=== PATIENT | female | born 1935 | race Caucasian/White ===

== ENCOUNTER 2018-12-18 09:11 | Outpatient (CLI) | payer MEDICARE, BC ==
--- NOTE | 2018-12-18 11:08 | RAD ---
RIGHT KNEE THREE VIEWS: INDICATIONS: Right knee pain. FINDINGS: There are mild to moderate degenerative changes with spurring from the tibial condyles and femoral co ndyles. Small fragment seen from the lateral aspect of the lateral tibial condyle, possibly represen ting old avulsion fracture. Mild spurring from the tibial spines and posterior patella. Small joint effusion cannot be excluded. No acute fracture. IMPRESSION: Mild to moderate degenerative change, as described. POS: OFF
== END 2018-12-18 09:12 | disposition home or self-care (01) ==
LOC: SCSRAD 09:11
PROVIDERS: ATTEND Family Medicine
DX: M25.561 Pain in right knee (principal); M17.11 Unilateral primary osteoarthritis, right knee

== ENCOUNTER 2019-02-16 20:53 | Emergency (ER) | payer MEDICARE, BC | END 2019-02-16 21:34 | disposition home or self-care (01) | LOC: SCSER 20:53 | DX: J01.90 Acute sinusitis, unspecified (principal); Z79.82 Long term (current) use of aspirin; Z79.899 Other long term (current) drug therapy; Z79.891 Long term (current) use of opiate analgesic | CPT/HCPCS: 99283 ==

== ENCOUNTER 2020-06-26 14:43 | Emergency (ER) | payer MEDICARE, BC ==
[2020-06-26] MEDS ORDERED: Ketorolac Tromethamine 30 MG/ML VIAL ONE (16:36)
[2020-06-26] MEDS ORDERED: Acetaminophen/Codeine 30-300mg Tablet ONE (16:48)
== END 2020-06-26 18:35 | disposition home or self-care (01) ==
LOC: ERS 14:43
DX: M79.662 Pain in left lower leg (principal)
CPT/HCPCS: 96372; J1885

== ENCOUNTER 2020-09-02 12:20 | Observation (INO) | payer MEDICARE, BC ==
[2020-09-02 13:08] LABS: #Basophils 0.2 thou/uL (0.0-0.2); #Eosinphils 0.1 thou/uL (0.0-0.7); #Lymphocytes 1.3 thou/uL (1.20-3.40); #Monocytes 0.3 thou/uL (0.11-0.59); #Neutrophils 4.1 thou/uL (1.40-6.50); %Basophils 2.6 % (0.0-1.0); %Eosinophils 1.3 % (0.0-10.0); %Lymphocytes 22.2 % (21.0-51.0); %Neutrophils 68.9 % (42.0-75.0); Hemoglobin 10.1 g/dL (12.0-16.0); Mean Corpuscular HGB CONC 32.9 g/dL (32.0-36.0); Mean Corpuscular Hemoglobin 31.4 pg (27.0-31.0); Mean Corpuscular Volume 95.3 fL (78.0-98.0); Mean Platelet Volume 8.1 fL (7.4-10.4); Platelet Count 287 thou/uL (130-400); RBC Distribution Width 12.2 % (11.5-14.5); Red Blood Cell (RBC) Count 3.23 mill/uL (4.20-5.40); White Blood Cell (WBC) Count 5.9 thou/uL (4.8-10.8)
[2020-09-02 13:29] LABS: ALT (SGPT) 13 U/L (8-55); AST (SGOT) 17 U/L (5-34); Alkaline Phosphatase 48 U/L (40-110); Anion Gap 15 mmol/L (10-20); BUN (Urea Nitrogen) 16 mg/dL (9.8-20.1); Bilirubin, Total 0.4 mg/dL (0.2-1.2); Calc. Creatinine Clearance 0 mL/min (70-130); Calcium 9.7 mg/dL (7.8-10.44); Carbon Dioxide 24 mmol/L (23-31); Chloride 102 mmol/L (98-107); Globulin 2.7 g/dL (2.4-3.5); Glucose 97 mg/dL (83-110); Protein, Total 6.7 g/dL (5.8-8.1); Sodium 137 mmol/L (136-145)
[2020-09-02] MEDS ORDERED: Aspirin Chewable 81 MG TAB ONE (14:39)
[2020-09-02 17:02] LABS: Troponin I Less than 0.010 ng/mL (< 0.028)
[2020-09-02] MEDS ORDERED: Nitroglycerin 2% Ointment 1 INCH/1 GM Packet ONE ×2 (18:11)
[2020-09-02] MEDS ORDERED: Ondansetron PF 4 MG/2 ML Vial IVP PRN (18:20)
[2020-09-02] MEDS ORDERED: Acetaminophen 325 MG TAB PO PRN (18:20)
[2020-09-02] MEDS ORDERED: hydrALAZINE 20 MG/ML VIAL SLOW IVP PRN (18:23)
[2020-09-02] MEDS ORDERED: Amlodipine 5 MG TAB PO SCH (19:00)
[2020-09-02 19:07] LABS: Troponin I Less than 0.010 ng/mL (< 0.028)
[2020-09-02] MEDS ORDERED: Acetaminophen 500 MG TAB ONE (19:14)
[2020-09-02] MEDS ORDERED: hydrALAZINE 20 MG/ML VIAL ONE (19:14)
[2020-09-02 19:47] LABS: Bilirubin Negative (Negative); Blood, Urine Negative (Negative); Clarity Clear (Clear); Glucose, Urine (Dipstick) Normal (Negative); Ketone, Urine 10 mg/dL (Negative); Leukocyte Negative Leu/uL (Negative); Nitrite Negative (Negative); Protein, Urine (Dipstick) Negative (Neg-Trace); Specific Gravity, Urine 1.009 (1.002-1.036); Squamous Epithelial 0-3 HPF (0-3); Urobilinogen Normal mg/dL (Less than 2); WBC/HPF 0-3 HPF (0-3)
[2020-09-02 19:48] LABS: Bacteria/HPF 1+ HPF (None Seen)
[2020-09-02] MEDS ORDERED: Zolpidem Tartrate 5 MG TAB PO SCH (21:00)
[2020-09-02] MEDS: Famotidine 20 MG TAB PO SCH (21:42)
[2020-09-02 21:46] LABS: Troponin I 0.011 ng/mL (< 0.028)
[2020-09-02 22:07] VITALS: BMI 21.7
[2020-09-03 05:12] LABS: #Lymphocytes 1.6 thou/uL (1.20-3.40); #Monocytes 0.4 thou/uL (0.11-0.59); #Neutrophils 3.5 thou/uL (1.40-6.50); %Basophils 0.7 % (0.0-1.0); %Eosinophils 0.6 % (0.0-10.0); %Lymphocytes 28.7 % (21.0-51.0); %Monocytes 6.5 % (0.0-10.0); %Neutrophils 63.5 % (42.0-75.0); Hemoglobin 9.5 g/dL (12.0-16.0); Mean Corpuscular HGB CONC 33.1 g/dL (32.0-36.0); Mean Corpuscular Hemoglobin 31.2 pg (27.0-31.0); Mean Corpuscular Volume 94.1 fL (78.0-98.0); Mean Platelet Volume 8.4 fL (7.4-10.4); Platelet Count 265 thou/uL (130-400); RBC Distribution Width 12.2 % (11.5-14.5); Red Blood Cell (RBC) Count 3.04 mill/uL (4.20-5.40); White Blood Cell (WBC) Count 5.5 thou/uL (4.8-10.8)
[2020-09-03 05:35] LABS: Anion Gap 14 mmol/L (10-20); BUN (Urea Nitrogen) 14 mg/dL (9.8-20.1); Calc. Creatinine Clearance 52 mL/min (70-130); Calcium 8.8 mg/dL (7.8-10.44); Carbon Dioxide 21 mmol/L (23-31); Chloride 104 mmol/L (98-107); Glucose 95 mg/dL (83-110); Iron 23 ug/dL (50-170); Iron Binding Capacity, Total 388 mcg/dL (265-497); Potassium 3.8 mmol/L (3.5-5.1); Sodium 135 mmol/L (136-145)
[2020-09-03 05:36] LABS: Cardiac Risk 2.6 (Less than 4.5)
[2020-09-03] MEDS ORDERED: Amlodipine 5 MG TAB PO SCH (09:00)
[2020-09-03] MEDS ORDERED: Montelukast Sodium 10 mg Tablet PO SCH (09:00)
[2020-09-03] MEDS ORDERED: methylPREDNISolone 4 mg Tablet PO SCH (09:00)
[2020-09-03] MEDS ORDERED: Loratadine 10 MG TAB PO SCH (09:00)
[2020-09-03] MEDS ORDERED: Aspirin 81 mg Enteric Coated Tablet PO SCH (09:00)
[2020-09-03] MEDS: Famotidine 20 MG TAB PO SCH (09:25)
[2020-09-03 11:48] LABS: SARS-CoV-2 PCR by NAA Not Detected (NotDetected)
[2020-09-03 11:53] VITALS: BP 142/61; TEMP 98.1
[2020-09-03] MEDS ORDERED: traMADol HCl 50 MG TAB PO SCH (13:00)
== END 2020-09-03 14:51 | disposition home or self-care (01) ==
LOC: ERS 12:20 → 2SW 18:03
PROVIDERS: ADMIT Internal Medicine; ATTEND Internal Medicine
DX: I10 Essential (primary) hypertension (principal); D64.9 Anemia, unspecified; J30.9 Allergic rhinitis, unspecified; R00.1 Bradycardia, unspecified; M41.9 Scoliosis, unspecified; I08.1 Rheumatic disorders of both mitral and tricuspid valves; Z79.1 Long term (current) use of non-steroidal anti-inflammatories (NSAID); Z79.82 Long term (current) use of aspirin; Z79.899 Other long term (current) drug therapy; Z20.822 Contact with and (suspected) exposure to COVID-19
CPT/HCPCS: 71045; 80048; 80061; 81001; 82274; 83540; 83550; 83880; 84484 ×2; 85025; 93005; 93306; 96374; 99285; U0003; U0005; 36415; 80053; 84443; G0378; J0360; J7509

== ENCOUNTER 2021-05-12 13:39 | Observation (INO) | payer MEDICARE, BC ==
[2021-05-12 15:09] LABS: #Lymphocytes 1.8 thou/uL (1.20-3.40); #Monocytes 0.4 thou/uL (0.11-0.59); #Neutrophils 4.5 thou/uL (1.40-6.50); %Basophils 0.7 % (0.0-1.0); %Eosinophils 0.7 % (0.0-10.0); %Lymphocytes 26.7 % (21.0-51.0); %Monocytes 5.6 % (0.0-10.0); %Neutrophils 66.4 % (42.0-75.0); Hemoglobin 11.5 g/dL (12.0-16.0); Mean Corpuscular Hemoglobin 29.1 pg (27.0-31.0); Mean Corpuscular Volume 88.1 fL (78.0-98.0); Mean Platelet Volume 7.6 fL (7.4-10.4); Platelet Count 280 thou/uL (130-400); RBC Distribution Width 12.8 % (11.5-14.5); Red Blood Cell (RBC) Count 3.96 mill/uL (4.20-5.40); White Blood Cell (WBC) Count 6.8 thou/uL (4.8-10.8)
[2021-05-12 15:27] LABS: ALT (SGPT) 12 U/L (8-55); AST (SGOT) 18 U/L (5-34); Albumin 4.1 g/dL (3.4-4.8); Alkaline Phosphatase 50 U/L (40-110); Anion Gap 15 mmol/L (10-20); BUN (Urea Nitrogen) 15 mg/dL (9.8-20.1); Bilirubin, Total 0.3 mg/dL (0.2-1.2); Calc. Creatinine Clearance 0 mL/min (70-130); Calcium 9.4 mg/dL (7.8-10.44); Carbon Dioxide 23 mmol/L (23-31); Chloride 98 mmol/L (98-107); Globulin 3.1 g/dL (2.4-3.5); Glucose 93 mg/dL (83-110); Lipase 29 U/L (8-78); Potassium 4.1 mmol/L (3.5-5.1); Protein, Total 7.2 g/dL (5.8-8.1); Sodium 132 mmol/L (136-145)
[2021-05-12] MEDS ORDERED: Nitroglycerin 0.4 MG TAB (25 Tab Bottle) SL PRN (18:15)
[2021-05-12] MEDS ORDERED: Ondansetron ODT 4 MG TAB PO PRN (18:15)
[2021-05-12] MEDS ORDERED: Docusate 100 MG CAP PO PRN (18:17)
[2021-05-12 18:25] LABS: Troponin I Less than 0.010 ng/mL (< 0.028)
[2021-05-12] MEDS ORDERED: Polyethylene Glycol 3350 17 GM Packet PO SCH (18:30)
[2021-05-12] MEDS ORDERED: Aspirin 81 mg Enteric Coated Tablet PO SCH (18:30)
[2021-05-12] MEDS ORDERED: Electrolyte Replacement Protocol 1 EACH FS SCH (18:30)
[2021-05-12] MEDS ORDERED: Acetaminophen 325 MG TAB ONE (18:41)
[2021-05-12] MEDS ORDERED: Electrolyte Replacement Protocol FS PRN (18:45)
[2021-05-12] MEDS: hydrALAZINE 20 MG/ML VIAL SLOW IVP PRN (20:42)
[2021-05-12] MEDS ORDERED: Gabapentin 300 MG CAP PO SCH (21:00)
[2021-05-12] MEDS ORDERED: Atorvastatin Calcium 10 MG TAB PO SCH (21:00)
[2021-05-12] MEDS ORDERED: Meloxicam 15 MG TAB PO SCH (21:00)
[2021-05-12] MEDS ORDERED: Zolpidem Tartrate 5 MG TAB PO SCH (21:00)
[2021-05-12 21:16] LABS: Troponin I Less than 0.010 ng/mL (< 0.028)
[2021-05-12 21:16] LABS: Magnesium 1.7 mg/dL (1.6-2.6)
[2021-05-12 22:47] VITALS: BMI 20.4
[2021-05-13] MEDS ORDERED: Magnesium 2 GM/50 ML 2 GM in Premix Bag 1 BAG IVPB SCH (01:30)
[2021-05-13] MEDS: Acetaminophen 325 MG TAB PO PRN ×2 (04:26→14:12)
[2021-05-13 05:09] LABS: #Lymphocytes 1.6 thou/uL (1.20-3.40); #Monocytes 0.4 thou/uL (0.11-0.59); #Neutrophils 4.3 thou/uL (1.40-6.50); %Basophils 0.6 % (0.0-1.0); %Eosinophils 0.3 % (0.0-10.0); %Lymphocytes 25.3 % (21.0-51.0); %Monocytes 6.1 % (0.0-10.0); %Neutrophils 67.6 % (42.0-75.0); Mean Corpuscular HGB CONC 33.5 g/dL (32.0-36.0); Mean Corpuscular Hemoglobin 29.7 pg (27.0-31.0); Mean Corpuscular Volume 88.4 fL (78.0-98.0); Mean Platelet Volume 7.8 fL (7.4-10.4); Platelet Count 263 thou/uL (130-400); RBC Distribution Width 12.9 % (11.5-14.5); White Blood Cell (WBC) Count 6.4 thou/uL (4.8-10.8)
[2021-05-13 05:38] LABS: Anion Gap 11 mmol/L (10-20); BUN (Urea Nitrogen) 13 mg/dL (9.8-20.1); Calc. Creatinine Clearance 54 mL/min (70-130); Calcium 8.9 mg/dL (7.8-10.44); Carbon Dioxide 24 mmol/L (23-31); Cardiac Risk 2.7 (Less than 4.5); Chloride 98 mmol/L (98-107); Cholesterol 186 mg/dl (< 200 Desired); Glucose 96 mg/dL (83-110); HDL Cholesterol 70 mg/dL (>60 Neg Risk); LDL Cholesterol, Calculated 103 mg/dL; Potassium 3.6 mmol/L (3.5-5.1); Sodium 129 mmol/L (136-145); Triglycerides 66 mg/dL (Less than 150)
[2021-05-13] MEDS ORDERED: TRAMADOL HCL 200 MG PO SCH (09:00)
[2021-05-13] MEDS ORDERED: Gabapentin 300 MG CAP PO SCH (09:00)
[2021-05-13] MEDS ORDERED: Multivitamin W/ Minerals 1 TAB PO SCH (09:00)
[2021-05-13] MEDS ORDERED: Loratadine 10 MG TAB PO SCH (09:00)
[2021-05-13] MEDS ORDERED: Polyethylene Glycol 3350 17 GM Packet PO SCH (09:00)
[2021-05-13] MEDS ORDERED: medroxyPROGESTERone Acetate 2.5 MG TAB PO SCH (09:00)
[2021-05-13] MEDS ORDERED: Aspirin 81 mg Enteric Coated Tablet PO SCH (09:00)
[2021-05-13] MEDS ORDERED: medroxyPROGESTERone Acetate 5 MG TAB PO SCH (09:00)
[2021-05-13] MEDS: Montelukast Sodium 10 mg Tablet PO SCH ×2 (10:44→11:18)
[2021-05-13] MEDS: Amlodipine 5 MG TAB PO SCH ×2 (10:45→11:18)
[2021-05-13] MEDS ORDERED: ADENOSINE 60 MG/20 ML VIAL ONE (11:02)
[2021-05-13 11:44] LABS: SARS-CoV-2 PCR by NAA Not Detected (NotDetected)
[2021-05-13 12:50] VITALS: TEMP 98
[2021-05-13] MEDS: hydrALAZINE 20 MG/ML VIAL SLOW IVP PRN (14:11)
[2021-05-13 14:13] VITALS: BP 175/81
[2021-05-13] MEDS ORDERED: Amlodipine 5 MG TAB PO SCH (21:00)
[2021-05-13] MEDS ORDERED: Montelukast Sodium 10 mg Tablet PO SCH (21:00)
== END 2021-05-13 17:32 | disposition home or self-care (01) ==
LOC: ERS 13:39 → ERHOLD 16:34 → 2SW 20:23
PROVIDERS: ADMIT Internal Medicine; ATTEND Family Medicine
DX: R07.89 Other chest pain (principal); I10 Essential (primary) hypertension; H93.19 Tinnitus, unspecified ear; E87.1 Hypo-osmolality and hyponatremia; D53.9 Nutritional anemia, unspecified; J30.2 Other seasonal allergic rhinitis; N32.81 Overactive bladder; M19.90 Unspecified osteoarthritis, unspecified site; G62.9 Polyneuropathy, unspecified; M41.9 Scoliosis, unspecified; Z79.1 Long term (current) use of non-steroidal anti-inflammatories (NSAID); Z79.82 Long term (current) use of aspirin; Z79.899 Other long term (current) drug therapy; Z20.822 Contact with and (suspected) exposure to COVID-19
CPT/HCPCS: 70450; 71045; 78452; 80048; 80061; 83690; 83735; 84484 ×2; 85025; 93005; 93017; 94760; 96365; 96375; 96376; 99285; A9500; G0378 ×3; U0003; U0005; 36415; 80053; 84443; J0153; J0360; J3475

== ENCOUNTER → 2021-10-07 | Day surgery (SDC) | payer MEDICARE, BC ==
[2021-10-05 12:12] VITALS: BMI 22.8
[2021-10-07 08:28] VITALS: BP 158/70; TEMP 98.6
== END | disposition home or self-care (01) ==
LOC: RAD 07:12 → EDSTATUS 08:00
PROVIDERS: ATTEND Nurse Practitioner Family
PROC: B01B1ZZ Fluoroscopy of Spinal Cord using Low Osmolar Contrast (ICD-10-PCS; principal; 2021-10-07)
DX: M47.22 Other spondylosis with radiculopathy, cervical region (principal); M50.11 Cervical disc disorder with radiculopathy, high cervical region; M43.12 Spondylolisthesis, cervical region; M48.02 Spinal stenosis, cervical region; M43.13 Spondylolisthesis, cervicothoracic region; M47.813 Spondylosis without myelopathy or radiculopathy, cervicothoracic region; Z79.1 Long term (current) use of non-steroidal anti-inflammatories (NSAID); Z79.82 Long term (current) use of aspirin; Z79.899 Other long term (current) drug therapy
CPT/HCPCS: 62302; 72052; 72126